=== PATIENT | male | born 1990 | race Two or more races ===

== ENCOUNTER → 2020-04-07 | Emergency (ER) | payer OTHER ==
[~2020-04-07] VITALS: Ht 182.9 cm; Wt 90.7 kg
[2020-04-07 20:26] VITALS: BP 152/98
--- NOTE | 2020-04-07 20:26 | NUR ---
ED Nurse Note: Pt HUNG RA29 from home c/o palpitations for 2hr duration onset today at 1800. Per pt, it occurs while he was resting. Denies chest pain. Pt reports drinking alcohol the night before. Pt AAOX4, verbally responsive. No SOB, on room air. ERMD at bedside.
--- NOTE | 2020-04-07 20:30 | NUR ---
ED Nurse Note: Xray at bedside
--- NOTE | 2020-04-07 20:45 | NUR ---
ED Nurse Note: IV line established. Blood and urine specimen collected sent to lab.
--- NOTE | 2020-04-07 20:48 | Emergency Room Report ---
History of Present Illness General Chief Complaint: Palpitations Source: Patient Present Illness HPI Disclaimer: Please note that this report is being documented using [employer] technology. This can lead to erroneous entry secondary to incorrect interpretation by the dictating instrument. HPI: 29-year-old male presents for palpitations. Was resting on his couch approximately 2 hours ago when he felt his heart racing. When standing up he felt somewhat lightheaded but did not syncopized. No injury occurred. He states he has had palpitations in the past. He reports drinking alcohol last night but none today. Noted some loose stools lately but denies abdominal pain, chest pain, shortness of breath, cough, fever, chills, vomiting. Denies drug use. Former tobacco use but quit 1 year ago. Does not take any medications. PMH: Denied PSH: Denied Allergies: Denied Social Hx: Quit tobacco 1 year ago Allergies: Coded Allergies: No Known Allergies (Unverified , 04/07/20) COVID-19 Screening Contact w/high risk pt: No Experienced COVID-19 symptoms?: No COVID-19 Testing performed HIGH VOLTAGE ELECTRICIAN: No Review of Systems All Other Systems: negative except mentioned in HPI Physical Exam Vital Signs Date Time Temp Pulse Resp B/P (MAP) Pulse Ox O2 Delivery O2 Flow Rate FiO2 04/07/20 20:22 99.7 130 18 152/98 (116) 98 Room Air General: Awake and alert, anxious appearing HEENT: NC/AT. EOMI. Cardiovascular: Tachycardic. S1 and S2 normal. No murmur appreciated Resp: Normal work of breathing. No cough, wheezing or crackles appreciated Abdomen: Abdomen is soft, nondistended. Nontender Skin: Intact. No abrasions, laceration or rash over the exposed skin MSK: Normal tone and bulk. Moving all extremities. No obvious deformity. Neuro: Awake and alert. Mentating appropriately. Medical Decision Making Diagnostic Impression: Primary Impression: Palpitations ER Course 29-year male presents for evaluation of palpitations. Differential includes not limited to anxiety, dehydration, alcohol use, electrolyte abnormality, orthostatic hypotension, arrhythmia, ACS to name a few. He is overall well- appearing. Presented with heart rate in the 120s however now is improved. EKG shows sinus tachycardia with a rate of 108, no ischemic changes. Labs returned within normal limits including a negative troponin. Heart rate normalized. Patient feels reassured by the unremarkable lab values. May be dehydration or effects of recent alcohol use. Stable for outpatient follow-up. Advised to return with new or worsening symptoms. Laboratory Tests Test 04/07/20 20:45 White Blood Count 16.5 K/UL (4.8-10.8) H Red Blood Count 5.50 M/UL (4.70-6.10) Hemoglobin 17.9 G/DL (14.2-18.0) Hematocrit 51.0 % (42.0-52.0) Mean Corpuscular Volume 93 FL (80-99) Mean Corpuscular Hemoglobin 32.5 PG (27.0-31.0) H Mean Corpuscular Hemoglobin Concent 35.1 G/DL (32.0-36.0) Red Cell Distribution Width 12.1 % (11.6-14.8) Platelet Count 263 K/UL (150-450) Mean Platelet Volume 9.1 FL (6.5-10.1) Neutrophils (%) (Auto) 78.8 % (45.0-75.0) H Lymphocytes (%) (Auto) 12.0 % (20.0-45.0) L Monocytes (%) (Auto) 6.4 % (1.0-10.0) Eosinophils (%) (Auto) 1.9 % (0.0-3.0) Basophils (%) (Auto) 1.0 % (0.0-2.0) Sodium Level 136 MMOL/L (136-145) Potassium Level 3.8 MMOL/L (3.5-5.1) Chloride Level 99 MMOL/L (98-107) Carbon Dioxide Level 23 MMOL/L (21-32) Blood Urea Nitrogen 6 mg/dL (7-18) L Creatinine 1.3 MG/DL (0.55-1.30) Estimated Glomerular Filtration Rate > 60 mL/min (>60) Glucose Level 108 MG/DL (74-106) H Calcium Level 9.1 MG/DL (8.5-10.1) Total Bilirubin 0.8 MG/DL (0.2-1.0) Aspartate Amino Transferase (AST) 50 U/L (15-37) H Alanine Aminotransferase (ALT) 105 U/L (12-78) H Alkaline Phosphatase 69 U/L (46-116) Troponin I 0.000 ng/mL (0.000-0.056) Total Protein 7.4 G/DL (6.4-8.2) Albumin 4.1 G/DL (3.4-5.0) Globulin 3.3 g/dL Albumin/Globulin Ratio 1.2 (1.0-2.7) Urine Opiates Screen Negative (NEGATIVE) Urine Barbiturates Screen Negative (NEGATIVE) Phencyclidine (PCP) Screen Negative (NEGATIVE) Urine Amphetamines Screen Negative (NEGATIVE) Urine Benzodiazepines Screen Negative (NEGATIVE) Urine Cocaine Screen Negative (NEGATIVE) Urine Marijuana (THC) Screen Negative (NEGATIVE) EKG Diagnostic Results Troponin ordered: Yes When was troponin ordered?: Apr 07, 2020 EKG Time: 20:36 Rate: tachycardiac Rhythm: NSR ST Segments: no acute changes Other Impression Sinus tachycardia, normal axis, normal intervals, no ST segment changes. Rhythm Strip Diag. Results Rhythm Strip Time: 20:36 Rate: 108 Rhythm: NSR, no PVC's, no ectopy Chest X-Ray Diagnostic Results Chest X-Ray Diagnostic Results : Chest X-Ray Ordered: Yes # of Views/Limited/Complete: 1 View Indication: Other - Palpitations Interpretation: no consolidation, no effusion, no pneumothorax, no acute cardiopulmonary disease Impression: No acute disease Electronically Signed by: Electronically signed by Dr. Tone Mitchell Last Vital Signs Date Time Temp Pulse Resp B/P (MAP) Pulse Ox O2 Delivery O2 Flow Rate FiO2 04/07/20 20:22 99.7 130 18 152/98 (116) 98 Room Air Disposition: HOME, SELF-CARE Condition: Stable Tone Mitchell MD Apr 07, 2020 20:48
[2020-04-07 20:49] VITALS: BP 142/89
[2020-04-07 21:27] LABS: EOSINOPHILS % (AUTO) 1.9 % (0.0-3.0); HEMOGLOBIN 17.9 G/DL (14.2-18.0); MEAN CORPUSCULAR VOLUME 93 FL (80-99); MONOCYTES % (AUTO) 6.4 % (1.0-10.0); NEUTROPHILS % (AUTO) 78.8 % (45.0-75.0); PLATELET COUNT 263 K/UL (150-450); RED CELL DISTRIBUTION WIDTH 12.1 % (11.6-14.8); WHITE BLOOD COUNT 16.5 K/UL (4.8-10.8)
[2020-04-07 21:29] LABS: ALANINE AMINOTRANSFERASE 105 U/L (12-78); ALBUMIN 4.1 G/DL (3.4-5.0); ALBUMIN/GLOBULIN RATIO 1.2 (1.0-2.7); ALKALINE PHOSPHATASE 69 U/L (46-116); ASPARTATE AMINO TRANSFERASE 50 U/L (15-37); BILIRUBIN,TOTAL 0.8 MG/DL (0.2-1.0); BLOOD UREA NITROGEN 6 mg/dL (7-18); CALCIUM 9.1 MG/DL (8.5-10.1); CARBON DIOXIDE 23 MMOL/L (21-32); CHLORIDE 99 MMOL/L (98-107); CREATININE 1.3 MG/DL (0.55-1.30); POTASSIUM 3.8 MMOL/L (3.5-5.1); SODIUM 136 MMOL/L (136-145)
--- NOTE | 2020-04-09 06:19 | Diagnostic Imaging Report ---
EXAM: XR Chest, 1 View CLINICAL HISTORY: CP TECHNIQUE: Frontal view of the chest. COMPARISON: No relevant prior studies available. FINDINGS: Lungs: Unremarkable. No consolidation. Pleural space: Unremarkable. No pneumothorax. Heart: Unremarkable. No cardiomegaly. Mediastinum: Unremarkable. Bones/joints: Unremarkable. IMPRESSION: No acute cardiopulmonary disease.
== END | disposition home or self-care (01) ==
LOC: EDBD 20:13 → EMR 20:20
DX: R00.2 Palpitations (principal); Z87.891 Personal history of nicotine dependence; R00.0 Tachycardia, unspecified
CPT/HCPCS: 36415; 71045; 80053; 80307; 84484; 85025; 93005; 99283